=== PATIENT | male | born 1980 | race Caucasian/White ===

== ENCOUNTER 2018-08-02 05:08 | Emergency (ER) | payer OTHER ==
[~2018-08-02] VITALS: Ht 170.2 cm; Wt 60.7 kg
[~2018-08-02 05:08] MED LIST: PANT40TA3 PO
[2018-08-02 05:16] VITALS: BP 143/86; PULSE 87; RESP 20; Ht 170.2 cm; Wt 60.7 kg
[2018-08-02] MEDS ORDERED: DOXY100T20 PO (07:24)
[2018-08-02] MEDS ORDERED: PROM6.2515 PO (07:24)
[2018-08-02] MEDS ORDERED: BENZ-6 PO (07:24)
--- NOTE | 2018-08-02 07:29 | ERD ---
ER Documentation Chief Complaint Chief Complaint cough for 10 days HPI 38 yr old male presenting with productive cough times 10 days. Patient states he has some left chest pain and some shortness of breath. He denies any fevers and denies runny nose. Has not taken medications. Denies medical problems. NKDA. Surgical history denies. Social history smokes a pack a day. ROS All systems reviewed and are negative except as per history of present illness. Medications Home Meds Active Scripts Promethazine Hcl* (Promethazine Hcl* Syrup) 6.25 Mg/5 Ml Syrup, 6.25 MG PO Q6H PRN for COUGH, #100 ML Prov:BLADE NIEVES-Sarah 08/02/18 Benzonatate* (Tessalon Perle*) 100 Mg Capsule, 100 MG PO Q8H PRN for COUGH, #30 CAP Prov:BLADE NIEVESC 08/02/18 Doxycycline Hyclate* (Doxycycline Hyclate*) 100 Mg Tablet.dr, 100 MG PO BID for 10 Days, TAB Prov:BLADE NIEVES PA-C 08/02/18 Pantoprazole* (Protonix*) 40 Mg Tablet.dr, 40 MG PO DAILY, #20 TAB Prov:SAMM YU 03/29/16 Allergies Allergies: Coded Allergies: No Known Allergy (Unverified , 03/29/16) PMhx/Soc Medical and Surgical Hx: pt denies Medical Hx, pt denies Surgical Hx Hx Alcohol Use: No Hx Substance Use: No Hx Tobacco Use: No FmHx Family History: No diabetes, No coronary disease, No other Physical Exam Vitals Vital Signs Date Temp Pulse Resp B/P (MAP) Pulse Ox O2 O2 Flow FiO2 Time Delivery Rate 08/02/18 98.9 87 20 143/86 97 05:16 (105) Physical Exam GENERAL: The patient is well-appearing, well-nourished, in no acute distress HEENT: Atraumatic. Conjunctivae are pink. Pupils equal, round, and reactive to light. There is no scleral icterus. Tympanic membranes clear bilaterally. Oropharynx clear. NECK: C-spine is soft and supple. There is no meningismus. There is no cervical lymphadenopathy. CHEST: Focal rhonchi to left lung space. No wheezing. HEART: Regular rate and rhythm. No murmurs, clicks, rubs or gallops. Procedures/MDM DIAGNOSTIC IMAGING REPORT Patient: BRIGIDO BRADLEY : 1980 Age: 38 Sex: M MR #: [id number] DOS: 08/02/18 0608 Ordering MD: ARPIT NIEVES PA-C Location: [facility] Room/Bed: PROCEDURE: XR Chest. CLINICAL INDICATION: Cough TECHNIQUE: A single AP view of the chest was obtained. COMPARISON: None. FINDINGS: There is opacity at the left lung base. No focal airspace opacification, pleural effusion or pneumothorax is seen. The cardiomediastinal silhouette is within normal limits for size. The osseous structures are unremarkable. IMPRESSION: Focal opacity at the left lung base, may reflect overlapping soft tissues. Pneumonia could have a similar appearance. A lateral view is recommended for further evaluation. MDM: 38 yr old male complaining of cough. Patient has findings consistent with pneumonia which was supported by focal rhonchi heard in the left lung space on physical exam. I have low suspicion for respiratory distress or hypoxia. Patient is discharged with supportive medications and antibiotics. Patient is told if symptoms change or worsen to return immediately to the ER. All questions answered at discharge Departure Diagnosis: Primary Impression: Pneumonia Condition: Stable Patient Instructions: Pneumonia (Adult) Additional Instructions: FOLLOW UP WITH YOUR PRIMARY CARE PHYSICIAN TOMORROW.Return to this facility if you are not improving as expected. BLADE NIEVES PA-C Aug 02, 2018 07:29
== END 2018-08-02 07:37 | disposition home or self-care (01) ==
LOC: FTE 05:08
DX: J18.9 Pneumonia, unspecified organism (principal); Z87.891 Personal history of nicotine dependence
CPT/HCPCS: 71045